=== PATIENT | male | born 1935 | race Caucasian/White ===

== ENCOUNTER → 2017-12-30 | Outpatient (CLI) | payer OTHER, MEDICARE | LOC: BMCIMAGING 12:26 | PROVIDERS: ATTEND Emergency Medicine | DX: S80.01XA Contusion of right knee, initial encounter (principal); M71.21 Synovial cyst of popliteal space [Baker], right knee ==

== ENCOUNTER → 2018-08-23 | Outpatient (CLI) | payer OTHER, MEDICARE | LOC: BMCIMAGING 10:49 | PROVIDERS: ATTEND Family Medicine | DX: S69.91XA Unspecified injury of right wrist, hand and finger(s), initial encounter (principal); M18.11 Unilateral primary osteoarthritis of first carpometacarpal joint, right hand; W23.0XXA Caught, crushed, jammed, or pinched between moving objects, initial encounter ==

== ENCOUNTER → 2018-12-09 | Outpatient (CLI) | payer OTHER, MEDICARE | LOC: FIMAGING 09:13 | PROVIDERS: ATTEND Orthopaedic Surgery | DX: Z01.818 Encounter for other preprocedural examination (principal); M17.11 Unilateral primary osteoarthritis, right knee ==

== ENCOUNTER 2018-12-22 05:56 | Inpatient (IN) | payer OTHER, MEDICARE ==
[2018-12-22] MEDS ORDERED: TRANEXAMIC ACID 1,000 MG in NS 100 ML IV ONE (06:00)
[2018-12-22] MEDS ORDERED: ROPIVACAINE 0.2% 80 MG, EPINEPHrine 0.2 MG, KETOROLAC TROMETHAMINE 30 MG, morphINE 10 M... IU ONE (06:00)
--- NOTE | 2018-12-22 06:33 | PDHPUP ---
History & Physical Update H&P update statement: This history and physical update is based on an assessment of the patient which was completed after admission or registration (within 24 hours), but prior to the surgery/procedure. H&P update: no change in patient's condition since H&P completed
--- NOTE | 2018-12-22 06:33 | PDIAF ---
- Diagnosis Diagnosis: right knee djd Code Status: Full Code - Medication Management Discharge Medications: electronically signed and located in the Home Medication List. - Orders Services needed: Home Care, Physical Therapy Home Care Face to Face: I certify that this patient was under my care and that I had the required kiph-iy-owpo encounter meeting the encounter requirements on the discharge day. My findings support the fact that the patient is homebound as defined in Home Care Face to Face Continued: CMS Chapter 7 Medicare Benefits Manual 30.1.1 , The condition of the patient is such that there exists a normal inability to leave home and consequently, leaving home would require a considerable and taxing effort. Isolation Type: None Diet Recommendation: no restrictions on diet Diet Texture: Regular Texture Diet Additional Instructions: TOTAL JOINT ARTHROPLASTY DISCHARGE INSTRUCTIONS 1. Your surgeon follows the [facility] protocol for reducing your risk of DVT (blood clots) following surgery. Medication will be ordered to prevent blood clots. A sudden increase in calf pain and/or swelling could indicate a blood clot in your leg. If this occurs, please call your surgeon or his/her programs assistant. An ultrasound of the leg may be necessary to diagnose a blood clot. If you have conditions that make you a higher risk for blood clots, your surgeon may use more aggressive ways to prevent them. Notify your surgeon if you think you are a high risk for blood clots. 2. Wear your white surgical stockings (JOSHUA hose) for 2 weeks. This decreases your swelling and may help prevent blood clots. It is ok to remove JOSHUA hose at night time to give your legs a break. 3. Swelling and bruising in the surgical leg is common. If you feel that it is excessive, please notify your surgeon. 4. Elevate your surgical leg with the ankle above the hip several times every day. Please keep the leg straight when you elevate by putting pillows under your foot. Do not put pillows under your knee. This will make being able to fully straighten more difficult. This is uncomfortable, but try to do it as much as possible. 5. For total knee replacements use compressive wrap on your knee for 3-5 days after surgery, then you can discontinue it. 6. Use a walker or crutches for 1-2 weeks. Progress your weight-bearing as tolerated. You may start to use a cane when you feel stable and safe. 7. You will receive physical therapy instructions in the hospital. Continue those exercises at home. There are additional exercises in the total joint booklet you were given before surgery. Outpatient physical therapy will begin 7- 10 days after surgery. Please schedule this in advance. 8. Use ice on your knee at least 3-5 times every day for 30 minutes. This helps reduce pain and swelling. Also use it at night before falling asleep. 9. Leave your surgical dressing in place for 2 weeks. Your dressing is water resistant, but not waterproof. Cover it with Saran Wrap or Unoct-f-Hyfz before showering. You may shower as soon as you feel safe entering a shower. If you notice bleeding from your incision 2 or 3 days after surgery, please notify your surgeon. 10. Due to narcotics, decreased activity and altered diet, most patients experience constipation after surgery. Use cxcs-scz-qcgdjdo stool softeners while you are on narcotics. 11. You may drive a car when you are comfortable bearing weight, have good muscular control of your leg and are off narcotics. This usually occurs 2-4 weeks after surgery, depending on which leg was operated on. 12. If there are questions not addressed here, please refer the [facility] book given for more information. If you still have questions, please contact your surgeon s office. 13. If you have a life-threatening emergency, please call 911 and go to the emergency room immediately. For non-life threatening emergencies, please call your physicians office for advice before going to the emergency room. - Follow Up Care Current Providers and Referrals: Massimo Larose MD [Medical Doctor] - Huy Rausch MD [Primary Care Provider] -
[2018-12-22] MEDS ORDERED: CALCIUM CHLORIDE 1 GM/10 ML INJ ONE (06:40)
[2018-12-22] MEDS ORDERED: ceFAZolin 1 GM/5 ML SYR ONE (06:40)
[2018-12-22] MEDS ORDERED: THROMBIN (BOVINE) 5,000 UNIT VIAL TP ONE (06:42)
[2018-12-22] MEDS ORDERED: FAMOTIDINE 20 MG TAB PO ONE (06:53)
[2018-12-22] MEDS ORDERED: ceFAZolin 2 GM/DEXTROSE 100 ML IV ONE (06:53)
[2018-12-22] MEDS ORDERED: ACETAMINOPHEN 325 MG TAB PO ONE (06:53)
[2018-12-22] MEDS ORDERED: LR 1,000 ML IV ONE (06:55)
[2018-12-22] MEDS ORDERED: MIDAZOLAM 2 MG/2 ML VIAL ONE (07:53)
[2018-12-22] MEDS ORDERED: MIDAZOLAM 2 MG/2 ML VIAL IVP ONE (08:04)
--- NOTE | 2018-12-22 08:04 | PDANEPAE ---
ANE Past Medical History - Cardiovascular History Hx Hypertension: Yes Hx Arrhythmias: Yes Hx Coronary Artery / Peripheral Vascular Disease: Yes Hx CHF / Valvular Disease: No Hx Palpitations: No Cardiovascular History Comment: afib. hx cabg 5V 2000. angioplasty 1990. hyperlipidemia. hx of pulm htn - Pulmonary History Hx COPD: No Hx Asthma/Reactive Airway Disease: No Hx Recent Upper Respiratory Infection: No Hx Oxygen in Use at Home: No Hx Sleep Apnea: No Sleep Apnea Screening Result - Last Documented: Positive Pulmonary History Comment: hx of lynda was using o2 but hasn't used in a year - Neurologic History Hx Cerebrovascular Accident: No Hx Seizures: No Hx Dementia: No - Endocrine History Hx Diabetes: No - Renal History Hx Renal Disorders: No - Liver History Hx Hepatic Disorders: No - Neurological & Psychiatric Hx Hx Neurological and Psychiatric Disorders: No - Cancer History Hx Cancer: Yes Cancer History Comment: hx prostate ca- had prostatectomy - Congenital Disorder History Hx Congenital Disorders: No - GI History Hx Gastrointestinal Disorders: Yes Gastrointestinal History Comment: occ constipation - Other Health History 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 10/30/13 left reverse shoulder replacement. 2007- appy. 2006- prostatectomy. 2001-cabg x5. 2004-r bunionectomy ANE Review of Systems Review of Systems: - Exercise capacity METS (RN): 4 METS ANE Patient History - Allergies Allergies/Adverse Reactions: CONTRAST DYE Allergy (Uncoded 12/08/18 16:05) Unknown - Home Medications Home Medications: Aspirin [Aspirin 81mg (OTC)] 81 mg PO DAILY 09/18/13 [Last Taken 12/15/18] Benazepril HCl 40 mg PO DAILY 09/18/13 [Last Taken 12/21/18] Metoprolol Succinate Xr [Toprol Xl 50 mg (RX)] 50 mg PO DAILY 09/18/13 [Last Taken 12/22/18 06:00] Rosuvastatin Calcium [Crestor 40mg (RX)] 40 mg PO HS 09/18/13 [Last Taken ] amLODIPine BESYLATE [Norvasc] 10 mg PO DAILY 09/18/13 [Last Taken 12/22/18 06:00 ] Amiodarone HCl 200 mg PO Q8H PRN 12/08/18 [Last Taken 3 Months Ago ~09/21/18] Eliquis 5 mg PO BID 12/08/18 [Last Taken 12/18/18] Herbals/Supplements -Info Only 12/08/18 [Last Taken 12/15/18] - NPO status NPO Since - Liquids (Date): 12/22/18 NPO Since - Liquids (Time): 05:45 NPO Since - Solids (Date): 12/21/18 NPO Since - Solids (Time): 19:00 - Smoking Hx Smoking Status: Never smoked - Family Anes Hx Family Hx Anesthesia Complications: none ANE Labs/Vital Signs - Vital Signs Blood Pressure: 118/70 Heart Rate: 64 Respiratory Rate: 16 O2 Sat (%): 95 Height: 170.18 cm Weight: 77.111 kg ANE Physical Exam - Airway Neck exam: decreased ROM Mallampati Score: Class 2 Mouth exam: normal dental/mouth exam - Pulmonary Pulmonary: no respiratory distress - Cardiovascular Cardiovascular: regular rate and rhythym - ASA Status ASA Status: II ANE Anesthesia Plan Anesthesia Plan: GA w LMA, spinal Regional Anesthesia: adductor canal FNB
[2018-12-22] MEDS ORDERED: PROPOFOL/EMULSION 500 MG/50 ML BOTTLE IV ONE (08:32)
[2018-12-22] MEDS ORDERED: LIDOCAINE 2% 5 ML SDV ONE (08:32)
[2018-12-22] MEDS ORDERED: fentaNYL 100 MCG/2 ML INJ ONE (09:16)
[2018-12-22] MEDS ORDERED: PROPOFOL 200 MG/20 ML VIAL ONE (09:16)
[2018-12-22] MEDS ORDERED: METOCLOPRAMIDE 10 MG/2 ML VIAL IVP PRN (09:49)
[2018-12-22] MEDS ORDERED: CYCLOBENZAPRINE 10 MG TAB PO PRN (09:49)
[2018-12-22] MEDS ORDERED: DIPHENOXYLATE/ATROPINE LOMOTIL 1 TAB PO PRN (09:49)
[2018-12-22] MEDS ORDERED: BISACODYL 10 MG SUPP PR PRN (09:49)
[2018-12-22] MEDS ORDERED: diphenhydrAMINE 25 MG CAP PO PRN (09:49)
[2018-12-22] MEDS ORDERED: LACTULOSE 20 GM/30 ML UDCUP PO PRN (09:49)
[2018-12-22] MEDS ORDERED: ONDANSETRON 4 MG/2 ML VIAL IVP PRN ×2 (09:49→10:50)
[2018-12-22] MEDS ORDERED: MAGNESIUM HYDROXIDE 30 ML UDCUP PO PRN (09:49)
[2018-12-22] MEDS ORDERED: PROMETHAZINE HCL 25 MG SUPPR PR PRN (09:49)
[2018-12-22] MEDS ORDERED: ONDANSETRON DISINTEGRATING 4 MG TAB PO PRN (09:49)
[2018-12-22] MEDS ORDERED: POLYETHYLENE GLYCOL 3350 17 GM PKT PO PRN (09:49)
[2018-12-22] MEDS ORDERED: PROMETHAZINE HCL 25 MG/ML INJ IVP PRN (09:49)
[2018-12-22] MEDS ORDERED: TEMAZEPAM 15 MG CAP PO PRN (09:49)
--- NOTE | 2018-12-22 09:49 | POSTOPPROG ---
Post Op Note Date of Operation: 12/22/18 Surgeon: Massimo Larose Curriculum And Assessment Coordinator: Robert Kahn Anesthesiologist: Zain Anesthesia: Spinal, Other (Specify) (Adductor Canal Block) Pre-op Diagnosis: Right knee OA Post-op Diagnosis: Right knee OA Indication: Right knee OA Procedure: Right TKA, Surendra assist Findings: Right knee OA Inf/Abcess present in the surg proc area at time of surgery?: No Depth: Deep Incisional (Fascial) EBL: 100-500
[2018-12-22] MEDS ORDERED: ROPIVACAINE HCL 150 MG/30 ML INJ ONE (10:14)
[2018-12-22] MEDS ORDERED: fentaNYL 100 MCG/2 ML INJ IVP PRN (10:50)
[2018-12-22] MEDS ORDERED: oxyCODONE IR 5 MG TAB PO PRN (10:50)
[2018-12-22] MEDS ORDERED: NALOXONE HCL 0.4 MG/ML INJ IVP PRN (10:50)
--- NOTE | 2018-12-22 10:51 | POSTANESTH ---
Post Anesthetic Evaluation Cardiovascular Status: Normal, Stable Respiratory Status: Normal, Stable Level of Consciousness/Mental Status: Can Participate in Eval Pain Control: Adequate, Prn Tx Ordered Nausea/Vomiting Control: Adequate, Prn Tx Ordered Complications Possibly Related to Anesthesia: None Noted
--- NOTE | 2018-12-22 11:09 | PDMN ---
Medical Necessity Medical necessity: Pt meets IP criteria per [facility] & [facility] CPT 51830; est los >2 mn s/ p R TKA; comorbid advanced age, CAD, AFIB, sleep apnea, pulmonary htn, hyperlipidemia & macular degeneration; per order 12/22/18
[2018-12-22] MEDS: oxyCODONE IR 5 MG TAB PO PRN ×2 (12:51→21:24)
[2018-12-22] MEDS ORDERED: NS 1,000 ML IV ONE (15:30)
[2018-12-22] MEDS: TRANEXAMIC ACID 650 MG TAB PO SCH ×2 (16:29→21:23)
[2018-12-22] MEDS: ACETAMINOPHEN 325 MG TAB PO SCH ×2 (16:30→21:23)
[2018-12-22] MEDS: LR 1,000 ML IV SCH ×2 (16:42→23:45)
[2018-12-22] MEDS: ceFAZolin 2 GM/DEXTROSE 100 ML IV SCH (17:50)
[2018-12-22] MEDS ORDERED: ROSUVASTATIN CALCIUM 40 MG TAB PO SCH (21:00)
[2018-12-22] MEDS ORDERED: ASPIRIN 81 MG CHEWABLE TAB PO SCH (21:00)
[2018-12-22] MEDS: ENOXAPARIN 40 MG/0.4 ML SYR SC SCH (21:22)
[2018-12-22] MEDS: SENNOSIDES/DOCUSATE SODIUM TAB PO SCH (21:22)
[2018-12-22] MEDS: FAMOTIDINE 20 MG TAB PO SCH (21:24)
[2018-12-23] MEDS: ceFAZolin 2 GM/DEXTROSE 100 ML IV SCH (01:30)
[2018-12-23] MEDS: oxyCODONE IR 5 MG TAB PO PRN ×2 (03:06→08:00)
[2018-12-23] MEDS: ACETAMINOPHEN 325 MG TAB PO SCH (03:06)
[2018-12-23] MEDS: TRANEXAMIC ACID 650 MG TAB PO SCH (05:18)
--- NOTE | 2018-12-23 07:26 | PDIAF ---
- Diagnosis Diagnosis: right knee djd Code Status: Full Code - Medication Management Discharge Medications: electronically signed and located in the Home Medication List. - Orders Services needed: Home Care, Physical Therapy Home Care Face to Face: I certify that this patient was under my care and that I had the required [id number]-kmfi encounter meeting the encounter requirements on the discharge day. My findings support the fact that the patient is homebound as defined in Home Care Face to Face Continued: CMS Chapter 7 Medicare Benefits Manual 30.1.1 , The condition of the patient is such that there exists a normal inability to leave home and consequently, leaving home would require a considerable and taxing effort. Isolation Type: None Diet Recommendation: no restrictions on diet Diet Texture: Regular Texture Diet Additional Instructions: TOTAL JOINT ARTHROPLASTY DISCHARGE INSTRUCTIONS 1. Your surgeon follows the [facility] protocol for reducing your risk of DVT (blood clots) following surgery. Medication will be ordered to prevent blood clots. A sudden increase in calf pain and/or swelling could indicate a blood clot in your leg. If this occurs, please call your surgeon or his/her real estate assistant. An ultrasound of the leg may be necessary to diagnose a blood clot. If you have conditions that make you a higher risk for blood clots, your surgeon may use more aggressive ways to prevent them. Notify your surgeon if you think you are a high risk for blood clots. 2. Wear your white surgical stockings (JOSHUA hose) for 2 weeks. This decreases your swelling and may help prevent blood clots. It is ok to remove JOSHUA hose at night time to give your legs a break. 3. Swelling and bruising in the surgical leg is common. If you feel that it is excessive, please notify your surgeon. 4. Elevate your surgical leg with the ankle above the hip several times every day. Please keep the leg straight when you elevate by putting pillows under your foot. Do not put pillows under your knee. This will make being able to fully straighten more difficult. This is uncomfortable, but try to do it as much as possible. 5. For total knee replacements use compressive wrap on your knee for 3-5 days after surgery, then you can discontinue it. 6. Use a walker or crutches for 1-2 weeks. Progress your weight-bearing as tolerated. You may start to use a cane when you feel stable and safe. 7. You will receive physical therapy instructions in the hospital. Continue those exercises at home. There are additional exercises in the total joint booklet you were given before surgery. Outpatient physical therapy will begin 7- 10 days after surgery. Please schedule this in advance. 8. Use ice on your knee at least 3-5 times every day for 30 minutes. This helps reduce pain and swelling. Also use it at night before falling asleep. 9. Leave your surgical dressing in place for 2 weeks. Your dressing is water resistant, but not waterproof. Cover it with Saran Wrap or Njexq-x-Idys before showering. You may shower as soon as you feel safe entering a shower. If you notice bleeding from your incision 2 or 3 days after surgery, please notify your surgeon. 10. Due to narcotics, decreased activity and altered diet, most patients experience constipation after surgery. Use bwyy-yol-trtgdxt stool softeners while you are on narcotics. 11. You may drive a car when you are comfortable bearing weight, have good muscular control of your leg and are off narcotics. This usually occurs 2-4 weeks after surgery, depending on which leg was operated on. 12. If there are questions not addressed here, please refer the [facility] book given for more information. If you still have questions, please contact your surgeon s office. 13. If you have a life-threatening emergency, please call 911 and go to the emergency room immediately. For non-life threatening emergencies, please call your physicians office for advice before going to the emergency room. - Follow Up Care Current Providers and Referrals: Massimo Larose MD [Medical Doctor] - Huy Rausch MD [Primary Care Provider] -
[2018-12-23] MEDS: SENNOSIDES/DOCUSATE SODIUM TAB PO SCH (08:01)
[2018-12-23] MEDS: FAMOTIDINE 20 MG TAB PO SCH (08:02)
--- NOTE | 2018-12-23 08:03 | SOAPPROG ---
SOAP Progress Note Assessment/Plan: Assessment: s/p right TKA, Surendra assist Plan: Discharge home WBAT ROM as tolerated Home PT with senior production planner DVT precautions reviewed - continue lovenox 40 mg SC injections once daily then restart Eliquis on December 25, 2018 F/U at two weeks Seek attention for increasing pain, swelling or other focal complaint Subjective: Patient had a syncopal yesterday while sitting in his chair. This occurred after PT. He denies headaches, lightheadedness, dizziness at this time. He complains of mild right knee pain. States there is no chest pain or shortness of breath. Patient tolerating oral pain medication and oral diet. Objective: Vital Signs Temp Pulse Resp BP Pulse Ox 36.5 C 70 16 131/66 H 97 12/23/18 07:13 12/23/18 07:13 12/23/18 07:13 12/23/18 07:13 12/23/18 07:13 Laboratory Results 12/23/18 04:43 12/22/18 12/23/18 12/24/18 05:59 05:59 05:59 Intake Total 3950 Output Total 4150 Balance -200 RLE: Dressing is clean, dry, intact. Intact PF, DF, EHL. Toes are warm and pink. Negative Homans bilaterally. X-rays reveal stable anatomic alignment, no fracture or lucency. ICD10 Worksheet Patient Problems: Problems Problem Status Onset Unilateral primary osteoarthritis, right knee Acute Shoulder arthritis Acute
[2018-12-23] MEDS: ENOXAPARIN 40 MG/0.4 ML SYR SC SCH (08:04)
--- NOTE | 2018-12-23 08:30 | PDDCSUM ---
Discharge Summary Discharge Summary: ADMIT DIAGNOSIS: Right knee degenerative joint disease DISCHARGE DIAGNOSIS: Right knee degenerative joint disease NAME OF PROCEDURE: Right total knee arthroplasty, MAKOplasty robotic assist HPI: The patient is an 83 year old male who has end-stage arthritis of his right knee. Clinical and radiographic features are consistent with this. Patient has failed attempts at conservative management, therefore, recommended operative right total knee replacement. HOSPITAL COURSE: Patient was admitted to the hospital floor after uncomplicated right total knee arthroplasty, MAKOplasty robotic assist. Patient tolerated the procedure well and had no additional complications. Patient was started on Lovenox 40 mg SC injections once daily until December 25, 2018 then he will resume his Eliquis; he also wore SCDs, JOSHUA hose for VTE prophylaxis. Patient also participated with PT and OT. He had a syncopal episode while sitting in his chair after participating in PT. Vitals revealed low blood pressure. He received 1L NS and his symptoms resolved. On the morning of POD 1, patient is doing better than expected. The most recent H&H is 11.3/33.0. At the time of discharge, patient is tolerating an oral diet, pain is well controlled on oral medications, and is voiding without difficulty. Dressing is clean, dry and intact. There is no swelling or calf tenderness. Patient has intact plantarflexion, dorsiflexion, EHL function. X-rays demonstrate anatomic positioning with no fracture or lucency. DISCHARGE ACTIVITY: Patient is WBAT and can perform ROM as tolerated. Patient was instructed to keep dressing clean, dry and intact. Patient is to seek attention for increasing redness, swelling, drainage or discharge. DISCHARGE MEDICATIONS: oxycodone 5 mg 1-2 every 3 hours prn pain, cyclobenzaprine 10 mg PO every 8 hours prn spasm, Zofran 4 mg orally disintegrating tablet every 8 hours prn nausea, Lovenox 40 mg SC injections once daily until December 25, 2018 then he will resume normal Eliquis dose, Tylenol prn pain. FOLLOW-UP: Follow up in 2 weeks. Again, patient is to seek attention for increasing redness, swelling, drainage or discharge.
[2018-12-23] MEDS ORDERED: BENAZEPRIL HCL 20 MG TAB PO SCH (09:00)
[2018-12-23] MEDS ORDERED: METOPROLOL SUCCINATE XR 50 MG TAB PO SCH (09:00)
--- NOTE | 2018-12-23 11:09 | ASMTLACE ---
LACE Length of stay for Answers: 2 days current admission Acuity / Level of Answers: Yes Care: Did the patient have an inpatient admission? Comorbidities - select Answers: Coronary Artery Disease all that apply Opioid dependence / Chronic pain Other Notes: HTN; AFib; HLD # of Emergency department Answers: 0 visits in the last 6 months Score: 12 Date Signed: 12/23/2018 11:08 AM Electronically Signed By:Carmen [email or web address],DEBONE SUPERVISOR
--- NOTE | 2018-12-23 11:09 | ASMTCMCOM ---
CM Note CM Note Notes: Met with Pt and son regarding discharge planning. [facility] Tony called to arrange PT HC. PT will discharge with [facility] PT and Pt has arranged Outpatient therapy with Mireya. Date Signed: 12/23/2018 11:08 AM Electronically Signed By:Carmen [email or web address],GENERAL ADJUSTER
[2018-12-23 11:24] VITALS: BP 97/51
--- NOTE | 2018-12-24 07:33 | GOP ---
[f rep st] OPERATIVE REPORT DATE OF OPERATION: 12/22/2018 SURGEON: Massimo Larose MD CHEMICAL PACKAGER: Alma Champion. assistant finance director was a medical necessity for the entirety of the case. PREOPERATIVE DIAGNOSIS: Right knee degenerative joint disease. POSTOPERATIVE DIAGNOSIS: Right knee degenerative joint disease. PROCEDURE PERFORMED: Right total knee arthroplasty. FINDINGS: SPECIMENS: Pathology, the bony cuts. INDICATIONS: The patient is an 83-year-old gentleman with end-stage arthritis to his right knee. Cl inical and radiographic features are consistent with this. He has failed all attempts at conservativ e management. I have, therefore, recommended operative intervention with total knee replacement. He understands the risks, benefits, alternatives, and wishes to proceed. Written consent was signed an d placed in the patient's chart. DESCRIPTION OF PROCEDURE: The patient was identified in the preanesthesia area. The right knee amelia rly demarcated as the operative site with an indelible marker. He was given 2 g of Ancef intravenous ly in route to the operative suite. In the OR, spinal anesthetic was placed. He was positioned in t he supine position. Additional sedation was carried out. The right knee and lower extremity were st erilely prepped and draped in the usual fashion. Tourniquet was applied to the upper thigh. The colon b was then sterilely prepped and draped in the usual fashion, exsanguinated with an Esmarch bandage. Tourniquet inflated to 275 mmHg. Standard anterior midline incision was made. Thick subcutaneous f laps were elevated followed by medial parapatellar arthrotomy. Subperiosteal elevation was carried o ut to the mid coronal plane. The knee was brought to a flexed position. There was tricompartmental arthritis. Decision was made to proceed with total knee replacement. Two pins were then placed acro ss the distal femur and the femoral reference array affixed followed by the femoral checkpoint. Two pins were then placed in a separate percutaneous incision in the mid domínguez and the tibial reference ar ray affixed followed by tibial checkpoint. All bony landmarks were entered into the computer. Soft tissue releases and manipulation of the components were carried out with the MAKOplasty software, and using the MAKOplasty robot, resections were made for a size 6 femur, size 7 tibia. This was trialed over a 7 x 9 mm polyethylene spacer. This allowed neutral limb alignment. No instability to the va gato or valgus stress through the flexion-extension arc. The trial components were withdrawn. The si ze 7 tibia impacted, confirmed to be fully seated. The size 6 femur similarly impacted and confirmed to be fully seated. A 7 x 9 mm polyethylene spacer was placed and impacted and, once again, confirm ed to be fully seated. The knee was brought to full extension. Stability profile was as previous wi th no instability to varus or valgus stress through the flexion-extension arc. The knee would come f rom full extension to 130 degrees of flexion. The patella was then everted, cut in a freehand cuttin g technique. Drill holes were made for a size 38 mm patella and a 38 mm metal-backed poly patella wa s press-fit into position. This tracked centrally through the flexion-extension arc. The wound was copiously irrigated; injected with a joint cocktail of ropivacaine, Toradol, and epinephrine. The me dial parapatellar arthrotomy closed using #1 Ethibond suture with the knee flexed 20 degrees. Subcut aneous tissue closed using 2-0 Monocryl, and the skin was stapled. Sterile dressing was applied. Th e patient was awakened, extubated, taken to recovery room in good, stable condition. TOTAL TOURNIQUET TIME: Fifty minutes. COMPLICATIONS: None. IMPLANTS: [place] [employer] posterior stabilized femoral component size 6, size 7 tibia, 7 x 9 mm X3 polyethylene spacer, and 38 mm asymmetric patella. DISPOSITION: To the recovery room, then the floor. He is weightbearing range of motion as tolerated , will follow standard recovery. /[id number]/MODL
[2018-12-24] MEDS ORDERED: ENOXAPARIN 40 MG/0.4 ML SYR SC SCH (09:00)
== END 2018-12-23 12:08 | disposition home health service (06) | DRG 470 ==
LOC: F3N 05:56
PROVIDERS: ADMIT Orthopaedic Surgery; ATTEND Orthopaedic Surgery
PROC: 8E0Y0CZ Robotic Assisted Procedure of Lower Extremity, Open Approach (ICD-10-PCS; principal; 2018-12-22 08:30)
PROC: 0SRC0JZ Replacement of Right Knee Joint with Synthetic Substitute, Open Approach (ICD-10-PCS; principal; 2018-12-22 08:30)
DX: M17.11 Unilateral primary osteoarthritis, right knee (principal); R55 Syncope and collapse
CPT/HCPCS: 97116-GP; 97161-GP; 97165-GO; 97530-GP; 97535-GO; J0171; J0690; J1650; J1885; J2250; J2270; J2704; J2795; J3010